=== PATIENT | female | born 1985 | race African-American/Black ===

== ENCOUNTER 2018-11-15 18:02 | Emergency (ER) | payer SELFPAY ==
[~2018-11-15] VITALS: Ht 157.5 cm; Wt 84.8 kg
[2018-11-15 18:40] VITALS: BP 124/86
--- NOTE | 2018-11-15 18:40 | NUR ---
ED Nurse Note: pt walked in due to left wrist pain. pt had slip and fall earlier at 1430 pm. pt denies head trauma. will continue to monitor.
--- NOTE | 2018-11-15 18:42 | NUR ---
ED Nurse Note: xray at bedside
--- NOTE | 2018-11-15 18:55 | Emergency Room Report ---
History of Present Illness General Chief Complaint: Pain Source: Patient Present Illness HPI 33-year-old female with no significant past medical history here complaining of a 10 out of 10 pain left hand after falling on outstretched hand today. Patient has taken ibuprofen without relief and has been applying ice with minimal relief. Denies tingling numbness and pain radiation. Swelling is noted over dorsum of left hand. Denies all other injuries, head trauma, loss of consciousness, chest pain, palpitation, no other associated symptoms. No sensory or motor deficits noted Allergies: Coded Allergies: Dust (Verified Allergy, Unknown, 11/15/18) LATEX (Verified Allergy, Unknown, 11/15/18) Patient History Past Medical History: see triage record Past Surgical History: unable to obtain Pertinent Family History: none Last Menstrual Period: 10/18/2018 Now: No : 4 Para: 3 Immunizations: UTD Reviewed Nursing Documentation: PMH: Agreed; PSxH: Agreed Nursing Documentation-PMH Past Medical History: No Stated History Hx Cardiac Problems: No - Hypothyroidism Hx Asthma: Yes Review of Systems All Other Systems: negative except mentioned in HPI Physical Exam Vital Signs Date Time Temp Pulse Resp B/P (MAP) Pulse Ox O2 Delivery O2 Flow Rate FiO2 11/15/18 18:29 98.8 68 18 124/86 (99) 95 Room Air Sp02 EP Interpretation: reviewed, normal General Appearance: well appearing, no apparent distress Head: normocephalic, atraumatic Eyes: bilateral eye normal inspection, bilateral eye PERRL ENT: hearing grossly normal, normal voice Neck: full range of motion, supple Respiratory: chest non-tender, no respiratory distress, no wheezing, speaking full sentences Cardiovascular #1: normal inspection, no murmur Cardiovascular #2: 2+ radial (R), 2+ radial (L) Gastrointestinal: normal inspection, non tender Musculoskeletal: back normal, swelling - Left hand, tenderness - Bony tenderness noted left fifth and fourth metacarpal Neurologic: normal inspection, alert, oriented x3, responsive, normal gait Psychiatric: normal inspection, judgement/insight normal, mood/affect normal Skin: no rash, warm/dry Lymphatic: normal inspection, no adenopathy Procedures Splinting Splinting : Consent: Verbal Location: Left hand Hand-Made Type: plaster Splint: ulnar Pre-Proc Neuro Vasc Exam: normal Post-Proc Neuro Vasc Exam: normal Patient Tolerated: Well Complications: None Medical Decision Making PA Attestation All my diagnosis and treatment plans were reviewed ad discussed with my supervising physician Dr. Ford Diagnostic Impression: Primary Impression: Contusion of left hand ER Course 33-year-old female with no significant past medical history here complaining of a 10 out of 10 pain left hand after falling on outstretched hand today. Patient has taken ibuprofen without relief and has been applying ice with minimal relief. Denies tingling numbness and pain radiation. Swelling is noted over dorsum of left hand. Denies all other injuries, head trauma, loss of consciousness, chest pain, palpitation, no other associated symptoms. No sensory or motor deficits noted Ddx considered but are not limited to: Hand sprain, hand sprain, hand fracture Vital signs: are WNL, pt. is afebrile H&PE are most consistent with : Left hand contusion with possible hairline fracture ORDERS: Hand x-ray, Toradol, ibuprofen ED INTERVENTIONS: Toradol, ulnar gutter DISCHARGE: At this time pt. is stable for d/c to home. Will provide printed patient care instructions, and any necessary prescriptions. Care plan and follow up instructions have been discussed with the patient prior to discharge. Symptomatic splint was applied to to physical examination tenderness noted however x-ray results was negative for fracture. Follow-up with primary care provider as well as transfer specialist if worsening symptoms return to the emergency room. Other X-Ray Diagnostic Results Other X-Ray Diagnostic Results : X-Ray ordered: Left hand # of Views/Limited Vs Complete: 3 View Indication: Swelling EP Interpretation: Yes PA Xray: Interpretation reviewed, by supervising MD, and agrees with findings. Interpretation: no dislocation, other - Possible fracture over fourth and fifth metacarpal bones Impression: Other - Hand contusion and possible fracture over fourth and fifth metacarpal bones Electronically Signed by: Jose Maria PA-C Last Vital Signs Date Time Temp Pulse Resp B/P (MAP) Pulse Ox O2 Delivery O2 Flow Rate FiO2 11/15/18 18:40 98.8 68 18 124/86 95 Room Air Disposition: HOME, SELF-CARE Condition: Stable Scripts Ibuprofen (Ibu) 800 Mg Tablet 800 MG PO TID, #30 TAB Prov: Jose Marques 11/15/18 Patient Instructions: Hand Contusion, [id number] Additional Instructions: Take medication as directed a symptomatic splint was applied follow-up with transfer specialist if worsening symptoms return to emergency room Jose Marques Nov 15, 2018 18:55
--- NOTE | 2018-11-15 18:55 | Diagnostic Imaging Report ---
EXAM: XR Left Hand Complete, 3 or More Views CLINICAL HISTORY: TRAUMA TECHNIQUE: Frontal, lateral and oblique views of the left hand. COMPARISON: No relevant prior studies available. FINDINGS: Bones/joints: Unremarkable. No acute fracture. No dislocation. Soft tissues: Unremarkable. No radiopaque foreign body. IMPRESSION: 1. No acute abnormality definitively identified. 2. If there is continued concern for occult fracture, recommend follow- up radiographs in 7-10 days.
[2018-11-15] MEDS ORDERED: IBU800 MG PO (18:56)
[2018-11-15] MEDS ORDERED: Ketorolac 30mg Inj IM ONE (19:00)
[2018-11-15 19:10] VITALS: BP 124/86
== END 2018-11-15 20:00 | disposition home or self-care (01) ==
LOC: EMR 19:20
DX: S60.222A Contusion of left hand, initial encounter (principal); E03.9 Hypothyroidism, unspecified; J45.909 Unspecified asthma, uncomplicated; Z91.048 Other nonmedicinal substance allergy status; Z91.040 Latex allergy status; W18.30XA Fall on same level, unspecified, initial encounter; Y92.9 Unspecified place or not applicable
CPT/HCPCS: 29125; 73130; 96372; 99283; J1885

== ENCOUNTER 2019-05-25 17:12 | Emergency (ER) | payer MEDICAID ==
[~2019-05-25] VITALS: Ht 157.5 cm; Wt 80.7 kg
[~2019-05-25 17:12] MED LIST: IBU800 MG PO
--- NOTE | 2019-05-25 17:52 | NUR ---
ED Nurse Note: Pt walked into ED [facility] post fall. Pt fell down a flight of stairs today and has pain in back /. Pain is in middle back to upper back. Pt is alert and orientedx4, ambulatory. Pt denies numbness/tingling. Pt does not have nausea/vomiting.
[2019-05-25 17:53] VITALS: BP 115/82
[2019-05-25] MEDS ORDERED: Acetaminophen Soln 160mg/5ml ORAL ONE (18:15)
--- NOTE | 2019-05-25 19:17 | NUR ---
ED Nurse Note: received report from Arabella Fuller. pt back from [facility]. koenig
--- NOTE | 2019-05-25 19:35 | Emergency Room Report ---
History of Present Illness General Chief Complaint: Lower Back Pain or Injury Source: Patient Present Illness HPI 34-year-old female with no significant past medical history other than hypothyroidism currently taking levothyroxine here complaining of neck and upper back pain after falling down the stairs earlier today. Patient was that she landed on her upper back. Denies any head injury or loss of consciousness. Has full range of motion of neck. Has not taken medication for symptom relief. Requests liquid medication. Denies tingling and numbness peer denies pain radiation. Rates her pain 7 out of 10 at this time. Denies at this time. Denies lower back pain, saddle paresthesia, urinary or bowel incontinence. Allergies: Coded Allergies: Dust (Verified Allergy, Unknown, 11/15/18) LATEX (Verified Allergy, Unknown, 11/15/18) Patient History Past Medical History: see triage record Past Surgical History: none Pertinent Family History: none Last Menstrual Period: 04/15/2019 Now: No Immunizations: UTD Reviewed Nursing Documentation: PMH: Agreed; PSxH: Agreed Nursing Documentation-PMH Hx Asthma: Yes Review of Systems All Other Systems: negative except mentioned in HPI Physical Exam Vital Signs Date Time Temp Pulse Resp B/P (MAP) Pulse Ox O2 Delivery O2 Flow Rate FiO2 05/25/19 17:38 97.9 78 18 107/85 (92) 98 Room Air Sp02 EP Interpretation: reviewed, normal General Appearance: no apparent distress, alert, GCS 15, non-toxic Head: normocephalic, atraumatic Eyes: bilateral eye normal inspection, bilateral eye PERRL ENT: hearing grossly normal, normal pharynx, no angioedema, normal voice Neck: full range of motion, supple, thyroid normal, no meningismus, no bony tend, no carotid bruits, supple/symm/no masses Respiratory: chest non-tender, lungs clear, normal breath sounds, no rhonchi, no wheezing, speaking full sentences Cardiovascular #1: regular rate, rhythm, no edema, no murmur Gastrointestinal: non tender, no bruit Genitourinary: no CVA tenderness Musculoskeletal: back normal, normal range of motion, digits/nails normal, no calf tenderness, no lower extremity edema, non-tender Neurologic: alert, motor strength/tone normal, oriented x3, sensory intact, responsive, speech normal Psychiatric: judgement/insight normal, memory normal, mood/affect normal, no suicidal/homicidal ideation Skin: no rash Lymphatic: no adenopathy Medical Decision Making PA Attestation All my diagnosis and treatment plans were reviewed ad discussed with my supervising physician Dr. Ford Diagnostic Impression: Primary Impression: Contusion of cervical cord Additional Impression: Contusion of thoracic wall ER Course 34-year-old female with no significant past medical history other than hypothyroidism currently taking levothyroxine here complaining of neck and upper back pain after falling down the stairs earlier today. Patient was that she landed on her upper back. Denies any head injury or loss of consciousness. Has full range of motion of neck. Has not taken medication for symptom relief. Requests liquid medication. Denies tingling and numbness peer denies pain radiation. Rates her pain 7 out of 10 at this time. Denies at this time. Denies lower back pain, saddle paresthesia, urinary or bowel incontinence. Ddx considered but are not limited to : thoracic spine fracture, thoracic spine strain, thoracic spine sprain, radiculopathy. Vital signs: are WNL, pt. is afebrile H&PE are most consistent with: Thoracic and cervical contusion ORDERS: Thoracic spine XR, cervical X ray, Motrin, lidocaine patch ED INTERVENTIONS: Toradol, Tylenol, lidocaine patch DISCHARGE: At this time pt. is stable for d/c to home. Will provide printed patient care instructions, and any necessary prescriptions. Care plan and follow up instructions have been discussed with the patient prior to discharge. Patient to follow-up primary care doctor as well as physical therapy, take medication as directed, if worsening symptoms return to emergency room Other X-Ray Diagnostic Results Other X-Ray Diagnostic Results #1: X-Ray ordered: Thoracic spine x-ray # of Views/Limited Vs Complete: 3 View Indication: Pain EP Interpretation: Yes PA Xray: Interpretation reviewed, by supervising MD, and agrees with findings. Interpretation: no dislocation, no soft tissue swelling, no fractures Impression: No acute disease Electronically Signed by: Jose Maria PA-C Other X-Ray Diagnostic Results #2: X-Ray ordered: Cervical spine x-ray # of Views/Limited Vs Complete: 3 View Indication: Pain EP Interpretation: Yes SHAINA Xray: Interpretation reviewed, by supervising MD, and agrees with findings. Interpretation: no dislocation, no soft tissue swelling, no fractures Impression: No acute disease Electronically Signed by: Jose Maria PA-C Last Vital Signs Date Time Temp Pulse Resp B/P (MAP) Pulse Ox O2 Delivery O2 Flow Rate FiO2 05/25/19 18:47 97.9 05/25/19 17:53 70 18 115/82 99 Room Air Status: improved Disposition: HOME, SELF-CARE Condition: Stable Scripts Lidocaine Patch* (Lidoderm Patch*) 1 Each Adh..patch 1 PATCH TOPIC DAILY, #30 PATCH Patch(es) may remain in place for up to 12 hours in any 24-hour period. Prov: Jose Marques 05/25/19 Ibuprofen (Children's Advil) 100 Mg/5 Ml Oral.susp 15 ML PO QID, #200 ML Prov: Jose Marques 05/25/19 Patient Instructions: Contusion Additional Instructions: Take medication as directed, alternate between icing and heating the affected area, follow-up with your primary care doctor possible referral to physical therapist, if worsening symptoms return to the emergency room Jose Marques May 25, 2019 19:35
[2019-05-25] MEDS ORDERED: CHILDREN'S100 MG/58 PO (19:37)
[2019-05-25] MEDS ORDERED: LIDODERM700 M1 TOPIC (19:37)
[2019-05-25] MEDS ORDERED: Ketorolac 30mg Inj IM ONE (19:45)
[2019-05-25 19:55] VITALS: BP 115/82
--- NOTE | 2019-05-25 19:55 | NUR ---
ER DISCHARGE NOTE: Patient is cleared to be discharged per ERMD, pt is aox4, on room air, with stable vital signs. pt was given dc and prescription instructions, pt was able to verbalize understanding, pt id band removed without complications. pt is able to ambulate with steady gait. pt took all belongings.
--- NOTE | 2019-05-26 12:28 | Diagnostic Imaging Report ---
Indication: Back pain Comparison: None Findings: 2 views of the thoracic spine were obtained. Normal alignment is demonstrated. Vertebral body heights and intervertebral disc heights are normal. The posterior elements including the facets are unremarkable. Soft tissues are unremarkable. Impression: No acute injury appreciated.
--- NOTE | 2019-05-26 12:29 | Diagnostic Imaging Report ---
Indication: Neck Pain Findings: 3 views of the cervical spine were obtained. There is no acute fracture identified. Alignment is normal. There is no soft tissue swelling. Impression: Negative cervical spine examination. Note: The open-mouth view is suboptimal
== END 2019-05-25 19:55 | disposition home or self-care (01) ==
LOC: EMR 17:25
DX: S10.93XA Contusion of unspecified part of neck, initial encounter (principal); S20.229A Contusion of unspecified back wall of thorax, initial encounter; W10.9XXA Fall (on) (from) unspecified stairs and steps, initial encounter; Y92.9 Unspecified place or not applicable
CPT/HCPCS: 72040; 72070; 81025; 96372; J1885; Z7502; 99284